=== PATIENT | female | born 1975 | race Caucasian/White ===

== ENCOUNTER → 2020-02-02 15:28 | Outpatient (CLI) | payer OTHER, SELFPAY ==
--- NOTE | ~2020-02-02 | MM_ITS ---
EXAMINATION: MM screening [facility] BI w cha HISTORY: Screening mammogram TECHNIQUE: Craniocaudal and mediolateral oblique 3-D tomosynthesis images were obtained and synthetic 2-D images were generated. CAD analysis was submitted and interpreted. COMPARISON: 11/24/2018, 10/08/2017, 12/11/2015 BREAST PARENCHYMAL COMPOSITION: The breasts are extremely dense, which lowers the sensitivity of mamm ography. FINDINGS: There is no evidence of suspicious mass, calcification, or architectural distortion to sugg est malignancy in either breast. There has been no suspicious interval change. IMPRESSION: 1. No mammographic evidence of malignancy. 2. Recommend routine screening mammography in one year. BI-RADS Category 1: Negative Reviewed, dictated and finalized at location A.
== END ==
PROVIDERS: Visit Provider Nurse Practitioner
DX: Z12.31 Encounter for screening mammogram for malignant neoplasm of breast (principal)
CPT/HCPCS: 77063; 77067

== ENCOUNTER → 2021-02-18 07:17 | Outpatient (CLI) | payer OTHER, SELFPAY ==
--- NOTE | ~2021-02-18 | MM_ITS ---
EXAMINATION: MM screening ben BI w cha HISTORY: Screening mammogram TECHNIQUE: Craniocaudal and mediolateral oblique 3-D tomosynthesis images were obtained and synthetic 2-D images were generated. CAD analysis was submitted and interpreted. COMPARISON: 02/02/2020, 11/24/2018, 10/08/2017 bilateral digital screening mammogram examinations BREAST PARENCHYMAL COMPOSITION: The breasts are extremely dense, which lowers the sensitivity of mamm ography. FINDINGS: There is no evidence of suspicious mass, calcification, or architectural distortion to sugg est malignancy in either breast. There has been no suspicious interval change. IMPRESSION: 1. No mammographic evidence of malignancy. 2. Recommend routine screening mammography in one year. BI-RADS Category 1: Negative Reviewed, dictated and finalized at location A.
== END ==
PROVIDERS: Visit Provider Nurse Practitioner
DX: Z12.31 Encounter for screening mammogram for malignant neoplasm of breast (principal)
CPT/HCPCS: 77063; 77067

== ENCOUNTER → 2022-02-20 15:11 | Outpatient (CLI) | payer OTHER, SELFPAY ==
--- NOTE | ~2022-02-20 | MM_ITS ---
EXAMINATION: MM screening ben BI w cha HISTORY: Screening mammogram TECHNIQUE: Craniocaudal and mediolateral oblique 3-D tomosynthesis images were obtained and synthetic 2-D images were generated. CAD analysis was submitted and interpreted. COMPARISON: 02/18/2021, 02/02/2020, 11/24/2018 bilateral screening mammogram examinations BREAST PARENCHYMAL COMPOSITION: The breasts are extremely dense, which lowers the sensitivity of mamm ography. FINDINGS: There is no evidence of suspicious mass, calcification, or architectural distortion to sugg est malignancy in either breast. There has been no suspicious interval change. IMPRESSION: 1. No mammographic evidence of malignancy. 2. Recommend routine screening mammography in one year. BI-RADS Category 1: Negative Reviewed, dictated and finalized at location A.
== END ==
PROVIDERS: PCP Internal Medicine; Visit Provider Nurse Practitioner
DX: Z12.31 Encounter for screening mammogram for malignant neoplasm of breast (principal)
CPT/HCPCS: 77063; 77067

== ENCOUNTER → 2023-04-09 13:21 | Outpatient (CLI) | payer BC, SELFPAY ==
--- NOTE | ~2023-04-09 | MM_ITS ---
EXAMINATION: MM screening ben BI w cha HISTORY: Screening mammogram TECHNIQUE: Craniocaudal and mediolateral oblique 3-D tomosynthesis images were obtained and synthetic 2-D images were generated. CAD analysis was submitted and interpreted. COMPARISON: 02/20/2022, 02/18/2021, 02/02/2020 bilateral screening mammogram examinations BREAST PARENCHYMAL COMPOSITION: The breasts are extremely dense, which lowers the sensitivity of mamm ography. FINDINGS: There is no evidence of suspicious mass, calcification, or architectural distortion to sugg est malignancy in either breast. There has been no suspicious interval change. IMPRESSION: 1. No mammographic evidence of malignancy. 2. Recommend routine screening mammography in one year. BI-RADS Category 1: Negative Reviewed, dictated and finalized at location A.
== END ==
PROVIDERS: PCP Obstetrics & Gynecology Gynecology; Visit Provider Obstetrics & Gynecology Gynecology
DX: Z12.31 Encounter for screening mammogram for malignant neoplasm of breast (principal)
CPT/HCPCS: 77063; 77067

== ENCOUNTER 2023-04-19 01:10 | Day surgery (SDC) | payer BC, SELFPAY ==
[2023-04-08 15:55] VITALS: BMI 19.3
--- NOTE | 2023-04-16 10:00 | SUR.PREOP ---
MESSAGE LEFT ON PT'S VOICEMAIL REGARDING HER UPCOMING APPOINTMENT
[2023-04-19 08:51] VITALS: BP 113/73; PULSE 65; RESP 16; TEMP 36.4; O2SAT 100
[2023-04-19] MEDS: LACTATED RINGERS 1,000 ML 150 ML IV CONT (09:06)
--- NOTE | 2023-04-19 09:26 | P.HP_ITS ---
History of Present Illness History of Present Illness Consent: Risks, benefits, and alternatives have been discussed and questions answered. Patient agrees to proceed with procedure. Chief complaint: neoplasm screening Narrative: Yumiko Aguilar is a 47 year old female Presents for screening colonoscopy. Patient's current weight appetite and bowel movements are normal. Patient denies abdominal pain. Patient has had no bleeding. Family history noncontributory. Review of Systems Review of Systems: Review of systems noncontributory. [facility] Family History Family History (Updated 05/30/18 @ 11:54 by DOCTOR UNKNOWN) Father Family history of coronary artery disease Social History Social History Smoking status: Never smoker Alcohol intake: current Alcohol use details: occasional Substance use: never Substance use type: does not use Living arrangements: with family Spiritual care concerns: No Meds Home Medications and Allergies Home Medications Medication Instructions Recorded Confirmed Type spironolactone 50 mg tablet 50 mg PO DAILY 04/08/23 04/19/23 History Allergies Allergy/AdvReac Type Severity Reaction Status Date / Time No Known Allergies Allergy Unknown Verified 04/19/23 08:48 Vital Signs Vital Signs - 24 hr 04/19/23 08:51 Temperature 97.6 F Pulse Rate 65 Respiratory Rate 16 Blood Pressure 113/73 Pulse Oximetry 100 Oxygen Delivery Room Air Exam Narrative: Physical exam reveals patient to be alert. Vital signs stable. HEENT exam is unremarkable. Patient is anicteric. Lungs are clear to auscultation and percussion. Heart is without murmur or extra sounds. Abdominal exam bowel sounds are present soft nontender with no organomegaly. Digital external rectal exam normal. Assessment and Plan Assessment and plan (1) Encounter for screening colonoscopy: Code(s): Z12.11 - Encounter for screening for malignant neoplasm of colon Status: Acute Assessment and Plan: Patient presents today for screening colonoscopy. She appears to be at average risk for colon polyps. Further recommendations may be given after endoscopy
--- NOTE | 2023-04-19 09:49 | WPDANESEPPF ---
Anes - Initial Pre Proc Eval Procedure: Operation Date: 04/19/23 10:00 Proposed Procedures p Screening Colonoscopy - Bright Hardy MD Date/Time: 04/19/23 09:49 Surgeon: Bright Hardy MD Pre Op Diagnosis: neoplasm screening Patient Data Age: 47 Gender: F Height: 1.57 m Weight: 46.9 kg Last Vital Signs Temp 97.6 F 04/19/23 08:51 Pulse 65 04/19/23 08:51 Resp 16 04/19/23 08:51 BP 113/73 04/19/23 08:51 Pulse Ox 100 04/19/23 08:51 O2 Del Method Room Air 04/19/23 08:51 Allergies Allergy/AdvReac Type Severity Reaction Status Date / Time No Known Allergies Allergy Unknown Verified 04/19/23 08:48 Home Medications Medication Instructions Recorded Confirmed Type spironolactone 50 mg tablet 50 mg PO DAILY 04/08/23 04/19/23 History Patient hx anesthesia problems: none Family hx anesthesia problems: none Results Review: All pre-operative results and documents have been reviewed as part of the pre-operative evaluation. [facility] Family History Family History (Updated 05/30/18 @ 11:54 by DOCTOR UNKNOWN) Father Family history of coronary artery disease Social History Social History Smoking status: Never smoker Alcohol intake: current Alcohol use details: occasional Substance use: never Substance use type: does not use Living arrangements: with family Spiritual care concerns: No Anes - Eval Final PreProcedure Day of Procedure 04/19/23 09:49 Patient weight: normal Heart: regular rate and rhythm Lungs: clear to auscultation Airway: Mallampati scale class II Neurological: alert and oriented Last oral intake: >/= 8 hours ASA classification: I Emergent: no Anesthetic plan: proceed Anesthesia type and monitoring: general GIVS and standard monitoring Results Review: All pre-operative results and documents have been reviewed as part of the pre-operative evaluation. Informed Consent: The patient's anesthetic plan and its attendant risks and benefits were discussed with the patient/family/POA. Questions were solicited and answers provided to the satisfaction of the patient/family/POA.
[2023-04-19 10:21] VITALS: BP 104/67; PULSE 63; RESP 22; O2SAT 100
[2023-04-19 10:31] VITALS: BP 115/84; PULSE 67; RESP 16; O2SAT 98
[2023-04-19 10:41] VITALS: BP 119/81; PULSE 56; RESP 17; O2SAT 100
== END 2023-04-19 10:49 | disposition home or self-care (01) ==
PROVIDERS: PCP Internal Medicine; Visit Provider Internal Medicine Gastroenterology
PROC: 0DJD8ZZ Inspection of Lower Intestinal Tract, Via Natural or Artificial Opening Endoscopic (ICD-10-PCS; CPT 45378; principal; 2023-04-19 10:00)
DX: Z12.11 Encounter for screening for malignant neoplasm of colon (principal); K64.8 Other hemorrhoids; Z82.49 Family history of ischemic heart disease and other diseases of the circulatory system
CPT/HCPCS: 45378; J2704; J7120

== ENCOUNTER 2023-07-31 19:36 | Emergency (ER) | payer BC, SELFPAY ==
[2023-07-31 19:43] VITALS: BP 104/68; PULSE 70; RESP 16; TEMP 36.8; O2SAT 100
--- NOTE | 2023-07-31 20:06 | ED.URI ---
HPI - URI/Sore Throat General Chief Complaint: Upper Respiratory Infection Stated Complaint: Headache;Congestion Time Seen by Provider: 07/31/23 19:57 Source: patient and RN notes reviewed Mode of arrival: ambulatory Limitations: no limitations History of Present Illness HPI Narrative: Patient presents today complaining of productive cough, fatigue, body aches, headache. Symptoms began around noon today after patient went to the gym and to an event earlier today feeling well. She states, I just don't feel well. Maybe I also have a UTI. Denies any concrete urinary symptoms. Denies sore throat, fever, shortness of breath. She has tried ibuprofen and Excedrin today for her headache without relief. Home COVID test was negative prior to arrival. Related Data Home Medications Medication Instructions Recorded Confirmed spironolactone 50 mg tablet 50 mg PO DAILY 04/08/23 07/31/23 Allergies Allergy/AdvReac Type Severity Reaction Status Date / Time No Known Allergies Allergy Unknown Verified 07/31/23 19:47 Review of Systems Review of Systems: CONSTITUTIONAL: Denies fever, chills, or sweats.+ body aches, fatigue EYES: Denies visual changes, redness, or discharge. ENT: Denies rhinorrhea, congestion, sore throat, or otalgia. CARDIOVASCULAR: Denies chest pain, palpitations, or edema. RESPIRATORY: Denies dyspnea.+ cough GASTROINTESTINAL: Denies abdominal pain, nausea, vomiting, or diarrhea. GENITOURINARY: Denies dysuria or hematuria. SKIN: Denies rash, itching, or wounds. MUSCULOSKELETAL: Denies back pain, joint pain, or myalgia. NEUROLOGIC: Denies numbness, tingling, or weakness.+ headache PSYCH: Denies depression or anxiety. [facility] Family History Family History Father Family history of coronary artery disease Social History Social History Smoking status: Never smoker Alcohol intake: current Alcohol use details: occasional Substance use: never Substance use type: does not use Lack of Transportation: No Lack of Food: Never True Current Housing: I Have Housing Concerned About Future Housing: No Difficulty Paying Gas/Electric Bills: No Difficulty Paying for Meds: No Currently Unemployed: No Education: Master's Degree or Higher Difficulty w/ Childcare or Family Care: No Living arrangements: with family Spiritual care concerns: No Comments At time of signature, I have reviewed and agree with nursing past medical, surgical, social and family history unless otherwise noted. Please see nursing chart for further information. There is no relevant family history pertinent to the presenting complaint Exam Narrative: GENERAL: Well-appearing, well-nourished, and in no acute distress. HEAD: Normocephalic, atraumatic. EYES: EOMI. No redness or drainage. Conjunctivae normal. ENT: Mucous membranes pink and moist. Nares clear. No rhinorrhea. TMs normal bilaterally. Throat normal. Uvula midline. NECK: Normal AROM. Supple. No lymphadenopathy. CHEST: No respiratory distress. Clear to auscultation. HEART: Regular rate and rhythm. No murmur appreciated. EXTREMITIES: Normal range of motion. No edema. SKIN: Warm, dry, no rash. Capillary refill normal. Normal skin turgor. NEURO: No focal deficits. Alert and oriented x3. Gait steady. PSYCH: Normal affect. No signs of depression or anxiety. Course Course Level of Care: Express Care Visit Vital Signs Vital signs: Vital Signs Temperature 98.2 F 07/31/23 19:43 Pulse Rate 70 07/31/23 19:43 Respiratory Rate 16 07/31/23 19:43 Blood Pressure 104/68 07/31/23 19:43 Pulse Oximetry 100 07/31/23 19:43 Temperature 98.2 F 07/31/23 19:43 Pulse Rate 70 07/31/23 19:43 Respiratory Rate 16 07/31/23 19:43 Blood Pressure 104/68 07/31/23 19:43 Pulse Oximetry 100 07/31/23 19:43 Review
== END 2023-07-31 20:09 | disposition home or self-care (01) ==
PROVIDERS: Emergency Provider Nurse Practitioner; PCP Internal Medicine
DX: B34.9 Viral infection, unspecified (principal)
CPT/HCPCS: 81003; 87804; 99213; G0463

== ENCOUNTER 2023-10-26 08:57 | Emergency (ER) | payer BC, SELFPAY ==
--- NOTE | ~2023-10-26 | CT_ITS ---
EXAMINATION: CTA neck DATE: 10/26/2023 09:55 INDICATION: Right neck injury. TECHNIQUE: Computed tomographic angiography (CTA) of the neck was performed with 100 mL Omnipaque-350 intravenous contrast. Automated exposure control and iterative reconstruction technique were employe d. The dose-length product was 397.40 mGy-cm. Maximum intensity projection 3D-reconstructions were cr eated by the technologist on a separate workstation. COMPARISON: None. FINDINGS: There is mild scarring at the lung apices. There are no pathologically enlarged lymph nodes . There is no significant stenosis of the vertebral arteries. There is minimal plaque in proximal lef t internal carotid artery. There is 0% stenosis of the proximal right internal carotid artery relativ e to normal distal artery lumen diameter (NASCET criteria). There is 0% stenosis of the proximal left internal carotid artery relative to normal distal artery lumen diameter. There is mild cervical spon dylosis. IMPRESSION: 1. 0% stenosis of the proximal internal carotid arteries relative to normal distal artery lumen diame ters (NASCET criteria). Reviewed, dictated and finalized at location A. IMPRESSION: 1. 0% stenosis of the proximal internal carotid arteries relative to normal dis boaz artery lumen diameters (NASCET criteria).
--- NOTE | ~2023-10-26 | XR_ITS ---
EXAMINATION: XR elbow RT min 3V DATE: 10/26/2023 10:01 INDICATION: Right elbow injury and pain. TECHNIQUE: 4 views of right elbow were obtained. COMPARISON: Right elbow radiographs 07/06/2018 FINDINGS: Bone alignment is normal. No fracture. Joint spaces are normal. No elbow joint effusion. IMPRESSION: 1. Normal right elbow. Reviewed, dictated and finalized at location A. IMPRESSION: 1. Normal right elbow.
[2023-10-26 09:00] VITALS: BP 125/63; PULSE 58; RESP 16; TEMP 36.4; O2SAT 100
--- NOTE | 2023-10-26 09:21 | ED.GENADULT ---
HPI - General Adult General Chief complaint: Neck Pain/Injury Stated complaint: throat swelling from trauma yest Time Seen by Provider: 10/26/23 09:08 History of Present Illness HPI narrative: 48-year-old female presents to the emergency department for evaluation of soreness to the right side of her neck. Patient was using a with the machine that had a malfunction causing the bar to strike the right side of her neck. Patient does report some pain in the right elbow but also report some pain with swallowing. Related Data Home Medications Medication Instructions Recorded Confirmed spironolactone 50 mg tablet 50 mg PO DAILY 04/08/23 07/31/23 Allergies Allergy/AdvReac Type Severity Reaction Status Date / Time No Known Allergies Allergy Unknown Verified 07/31/23 19:47 Review of Systems Review of Systems: All systems reviewed & are unremarkable except as noted in HPI and below PMFSH Family History Family History Father Family history of coronary artery disease Social History Social History Smoking status: Never smoker Alcohol intake: current Alcohol use details: occasional Substance use: never Substance use type: does not use Lack of Transportation: No Lack of Food: Never True Current Housing: I Have Housing Concerned About Future Housing: No Difficulty Paying Gas/Electric Bills: No Difficulty Paying for Meds: No Currently Unemployed: No Education: Master's Degree or Higher Difficulty w/ Childcare or Family Care: No Living arrangements: with family Spiritual care concerns: No Exam Narrative: APPEARANCE: Well appearing, no pain, no distress, well-nourished. HEAD: normocephalic, atraumatic. EYES: PERRLA/EOMI, conjunctivae clear. NOSE: Normal no drainage EARS:TMS clear with good light reflex. THROAT: Pharynx clear, no exudate. NECK: Supple. No adenopathy, no masses. No posterior tenderness to palpation no anterior ecchymosis or edema. RESPIRATORY: Airway patent, respirations nonlabored. Clear to auscultation bilaterally, no rales, rhonchi, wheezing. CARDIOVASCULAR: Regular rate and rhythm without murmurs rubs or gallops. ABDOMINAL: Soft, nontender, nondistended, normal bowel sounds MUSCULOSKELETAL: Moves all extremities. Strength/ROM intact, No edema, No calf tenderness. NEURO: Alert. Cranial nerves II through XII intact. Grossly intact SKIN: Warm, dry. Normal Color Course Vital Signs Vital signs: Vital Signs Temperature 97.6 F 10/26/23 09:00 Pulse Rate 58 L 10/26/23 09:00 Respiratory Rate 16 10/26/23 09:00 Blood Pressure 125/63 10/26/23 09:00 Pulse Oximetry 100 10/26/23 09:00 Oxygen Delivery Room Air 10/26/23 09:00 Temperature 97.6 F 10/26/23 09:00 Pulse Rate 86 10/26/23 10:49 Respiratory Rate 16 10/26/23 10:49 Blood Pressure 113/72 10/26/23 10:49 Pulse Oximetry 97 10/26/23 10:49 Oxygen Delivery Room Air 10/26/23 09:00 Medical Decision Making MDM Narrative Medical decision making narrative: 48-year-old female presented to the emergency department for evaluation of right elbow pain and right-sided neck pain. Patient is afebrile with stable hemoglobin and white blood cell count patient's INR is 0.9 with no significant acute abnormalities on her CMP. X-ray of the elbow was negative for acute fracture dislocation, CTA of the neck showed no vascular injury. Patient and family were updated on the results of her imaging. Differential Diagnosis Differential Diagnosis: Carotid injury, esophageal injury, tracheal injury, elbow strain Vital Signs Vital Signs: Vital Signs Temperature 97.6 F 10/26/23 09:00 Pulse Rate 58 L 10/26/23 09:00 Respiratory Rate 16 10/26/23 09:00 Blood Pressure 125/63 10/26/23 09:00 Pulse Oximetry 100 10/26/23 09:00 Oxygen Delivery Room Air 10/26/23 09:00
[2023-10-26 09:47] LABS: Estimated CRCL calculation 56 ml/min; Estimated Glomerular Filt Rate > 60
[2023-10-26 09:49] LABS: Basophils Percent Auto 0.8 % (0.2-1.2); Eosinophils Absolute Auto 0.2 K/mm3 (0-0.3); Eosinophils Percent Auto 5.8 % (0-4.4); Hematocrit 37.4 % (37.0-47.0); Hemoglobin 12.7 g/dL (12.0-15.0); Immature Granulocyte Absolute 0.01 K/mm3 (0.00-0.031); Immature Granulocyte Percent A 0.3 % (0-0.5); Lymphocytes Absolute Auto 1.41 K/mm3 (0.9-3.2); Lymphocytes Percent Auto 39.3 % (18.3-44.2); Mean Corpuscular Hemoglobin 33.9 pg (26-34); Mean Corpuscular Volume 99.7 fl (80-100); Mean Platelet Volume 9.9 fl (7.4-10.4); Monocytes Absolute Auto 0.3 K/mm3 (0.1-0.6); Monocytes Percent Auto 8.4 % (2.6-8.5); Neutrophils Absolute Auto 1.6 K/mm3 (1.3-6.7); Neutrophils Percent Auto 45.4 % (45.5-73.1); Platelet Count Result 211 k/mm3 (150-375); Red Blood Count 3.75 M/mm3 (4.2-5.4); Red Cell Distribution Width 12.2 % (11.5-14.5); White Blood Count 3.6 K/mm3 (4.5-10.0)
[2023-10-26 09:53] LABS: Alanine Aminotransferase 19 U/L (6-35); Albumin Level 4.7 g/dL (3.5-5.1); Alkaline Phosphatase 37 U/L (38-126); Anion Gap 7 mmol/L (4-12); Aspartate Amino Transferase 26 U/L (14-36); Bilirubin,Total 0.5 mg/dL (0.2-1.3); Blood Urea Nitrogen 10 mg/dL (7-17); Calcium 9.7 mg/dL (8.4-10.2); Carbon Dioxide 24 mmol/L (22-30); Chloride 107 mmol/L (98-107); Estimated CRCL calculation 63 ml/min; Estimated Glomerular Filt Rate > 60; Glucose 86 mg/dL (65-110); Potassium 4.4 mmol/L (3.4-5.0); Sodium 138 mmol/L (137-145)
[2023-10-26 09:59] LABS: INR 0.9; Prothrombin Time 12.9 Seconds (11.1-14.7)
[2023-10-26 10:00] LABS: Partial Thromboplastin Time 22.9 Seconds (22.3-36.8)
[2023-10-26 10:49] VITALS: BP 113/72; PULSE 86; RESP 16; O2SAT 97
== END 2023-10-26 10:50 | disposition home or self-care (01) ==
PROVIDERS: Emergency Provider Emergency Medicine; PCP Internal Medicine
DX: S10.93XA Contusion of unspecified part of neck, initial encounter (principal); S53.401A Unspecified sprain of right elbow, initial encounter; W22.8XXA Striking against or struck by other objects, initial encounter
CPT/HCPCS: 36415; 70498; 73080; 80053; 81025; 85025; 85610; 85730; 99284; Q9967

== ENCOUNTER 2024-04-13 09:49 | Outpatient (CLI) | payer BC, SELFPAY ==
--- NOTE | ~2024-04-13 | MM_ITS ---
EXAMINATION: MM screening ben BI w cha HISTORY: Screening mammogram TECHNIQUE: Craniocaudal and mediolateral oblique 3-D tomosynthesis images were obtained and synthetic 2-D images were generated. CAD analysis was submitted and interpreted. COMPARISON: No prior mammogram is available for comparison at this institution. BREAST PARENCHYMAL COMPOSITION:Dense: The breasts are extremely dense, which lowers the sensitivity o f mammography. FINDINGS: No suspicious mass, calcification, or architectural distortion are identified in either anish ast to suggest malignancy. There has been no suspicious interval change. IMPRESSION: No mammographic evidence of malignancy. Recommend routine screening mammography in one year. BI-RADS Category 1: Negative Reviewed, dictated and finalized at location M.
== END 2024-04-13 09:50 | disposition home or self-care (01) ==
LOC: MICIMG 09:50
PROVIDERS: PCP Nurse Practitioner; Visit Provider Nurse Practitioner
DX: Z12.31 Encounter for screening mammogram for malignant neoplasm of breast (principal)
CPT/HCPCS: 77063; 77067

== ENCOUNTER 2025-06-06 08:25 | Outpatient (CLI) | payer BC, SELFPAY ==
--- OUTSIDE RECORDS SUMMARY | 2025-06-06 08:28 | XMS_ITS | Encounter Summary ---
Author Organization [facility] Address [address] [place] [address] Care Team Providers Care Housekeeping Aid Name Role Phone Provider, Abstract Primary Care Provider Unavail able Encounter Details Date Type Department Care Team (Late st Contact Info) Description 07/22/2007 Outpatient Historical [facility] Internal Medicine - [facility] [id number] [facility] [address] [place] [address] Mabel Diez MD Social History Tobacco Use Types Packs/Day Years Used Date Smoking Tobacco: Never Assessed Comments Unknown Sex and Gender Information Value Date Recorded Sex Assigned at Not on file 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
--- OUTSIDE RECORDS SUMMARY | 2025-06-06 08:28 | XMS_ITS | Encounter Summary ---
Author Organization [facility] Address [address] [place] [address] Care Team Providers Care Business Process Representative Name Role Phone Provider, Abstract Primary Care Provider Unavail able Encounter Details Date Type Department Care Team (Latest Contact Info) Description 06/21/[address] 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
--- OUTSIDE RECORDS SUMMARY | 2025-06-06 08:28 | XMS_ITS | Clinical Summary ---
Author Organization [facility] [facility] Address [address] [place] [address] Care Team Providers Care Laborer [employer] Name Role Phone Unavailable Primary Care Provider Unavailabl e Source Comments [facility],non-owned Affiliates and Associated Physician Practices is amultiple site organization consisting of ambulatory clinics and hospital sitesin [place], [place], [place] and [place]. This disclosure is being madepursuant to the Care Everywhere program and may not contain all information available regarding this patient. Last updated 18.[facility] Allergies No known active allergies Medications * Be aware that medications may not be up to date on this document. Alwaysverify current medications with the patient. 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 Sexual Orientation Straight 05/20/2021 5: 35 AM INSURANCE DEFENSE ATTORNEY Last Filed Vital Signs Vital Sign Reading Time Taken Comments Blood Pressure 108/70 06/15/2019 11:47 AM INSURANCE DEFENSE ATTORNEY Pulse 77 06/15/2019 11:47 AM INSURANCE DEFENSE ATTORNEY Temperature 37 C (98.6 F) 06/15/2019 11:47 AM INSURANCE DEFENSE ATTORNEY Respiratory Rate 16 06/15/2019 11:47 AM INSURANCE DEFENSE ATTORNEY Oxygen Saturation 99% 06/15/2019 11:47 AM INSURANCE DEFENSE ATTORNEY Inhaled Oxygen Concentration - - Weight 49.9 kg (110 lb) 06/15/2019 11:47 AM INSURANCE DEFENSE ATTORNEY Height 157.5 cm (5' 2) 06/15/2019 11:47 AM INSURANCE DEFENSE ATTORNEY Body Mass Index 20.12 06/15/2019 11:47 AM INSURANCE DEFENSE ATTORNEY Plan of Treatment Health Maintenance Due Date Last Done Comments COLOGUARD (AGES 45-75) - COL ON CA SCREENING 1977 COLON MONITORING 1977 COLONOSCOPY - COLON CA SCREENING 1977 CT COLONOGRAPHY - COLON CA SCREENING 1977 Colorectal Cancer Screening 1977 FIT - COLON CA SCREENING 1977 FLEX SIG - COLON CA SCREENING 1977 LIPID TESTING 1977 MAMMOGRAM 1977 HIV SCREENING 1992 HEPATITIS C SCREENING 08/04/1995 DTAP/TDAP/TD VACCINES (1 - Tdap) 1996 HEPATITIS B VACCINE (1 of 3 - 19+ 3-dose series) 1996 DEPRESSION SCREENING 06/14/2024 COVID-19 VACCINE (3 - 2024-2 6 season) 2025 09/25/2020, 09/02/2020 INFLUENZA VACCINE (#1) 2025 , 03/16/2020 ZOSTER VACCINE (1 of 2) 2027 HIB VACCINE Aged Out No longer eligi ble based on patient's age to complete this topic HPV VACCINE Aged Out No longer eligi ble based on patient's age to complete this topic MENINGOCOCCAL (Group B) VACCINE SHARED DECISION-MAKING Aged Out No longer eligible based on patient's age to complete this topic MENINGOCOCCAL GROUPS A/C/Y/W VACCINE Aged Out No longer eligible b ased on patient's age to complete this topic PNEUMOCOCCAL VACCINE Aged Out No long er eligible based on patient's age to complete this topic Insurance [facility] Address: [address] [place] [address] [facility]
--- OUTSIDE RECORDS SUMMARY | 2025-06-06 08:28 | XMS_ITS | Clinical Summary ---
Author Organization [employer] [facility] Address [address] [facility] [place] [address] Phone Care Team Providers Care Sde Name Role Phone Provider, Abstract Primary Care Provider Unavail able Allergies Active Allergy Reactions Criticality Noted Date Comments No Known Allergies 12/30/2005 Medications FIORICET 50-325-40 mg Oral Tab 1-2 tablet at headache onset. May repeat every 4 hours. Maximumof 6 tablets in 24 hours. 30.00 0 7 Active MICROGESTIN 1.5/30 (21) 1.5-30 mg-mcg Oral Tab Take 1 Tab by mouth daily. Active spironolactone (ALDACTONE) 50 mg Oral Tab Take 50 mg by mouth 2 times daily. Active naproxen sodium (ALEVE) 220 mg Oral TabIndications: Chondromalacia Take 2 Tabs by mouth 2 times daily. 0 0 8 Active Active Problems Problem Noted Date Diagnosed Date Acne NEC 12/19/2007 Overview (12/19/2007): Controlled with spirnolactone Resolved Problems Problem Noted Date Diagnosed Date Resolved Date Acute maxillary sinusitis 03/14/2007 Headache(784.0) 03/14/2007 12/19/2007 Abdominal pain, generalized 06/18/2006 12/19/2007 Abdominal pain, unspecified site 06/18/2006 12/19/2007 Acute upper respiratory infe ctions of unspecified site 06/18/2006 12/19/2007 Routine general medical exam ination at a health care facility 12/30/2005 12/19/2007 Screening for lipoid disorders 12/30/2005 12/19/2007 Pain in joint, ankle and foot 12/30/2005 12/19/2007 Social History Tobacco Use Types Packs/Day Years Used Date Smoking Tobacco: Never Alcohol Use Standard Drinks/Week Comments Yes 0.8 (1 standard drink = 0.6 oz p ure alcohol) Comments No Sex and Gender Information Value Date Recorded Sex Assigned at Not on file Legal Sex Female 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 Gender Identity Not on file Sexual Orientation Not on file Last Filed Vital Signs Vital Sign Reading Time Taken Comments Blood Pressure 82/60 12/19/2007 2:35 PM CDT Pulse 58 12/19/2007 2:35 PM CDT Temperature 36.7 C (98.1 F) 12/19/2007 2:35 PM CDT Respiratory Rate - - Oxygen Saturation - - Inhaled Oxygen Concentration - - Weight 48.1 kg (106 lb) 12/19/2007 2:35 PM CDT Height - - Body Mass Index - - Plan of Treatment Health Maintenance Due Date Last Done Comments DTAP/TDAP/TD VACCINES (1 - Tdap) 1996 HEPATITIS B VACCINES (1 of 3 - 19+ 3-dose series) 07/16 HPV/Cotest (21-29) 1998 CERVICAL CANCER SCREENING 2007 HPV/Cotest (30-65) 2007 PAP SMEAR 2007 BREAST CANCER SCREENING 2017 COLORECTAL SCREENING 2022 Colorectal Cancer Screening 2022 FIT-DNA Q 3 years 2022 FIT/FOBT Q 1 year 2022 Flex Sig/CT Colonography Q 5 years 2022 INFLUENZA VACCINE (#1) 2025 Insurance [facility] OPT[employer] PPO [id number] Care Teams Sde Relationship Specialty Start Date End Date Provider, Abstract NO ADDRESS ON FILE PCP - General 02/28/21
--- OUTSIDE RECORDS SUMMARY | 2025-06-06 08:28 | XMS_ITS | Encounter Summary ---
Author Organization [facility] Address [address] [place] [address] Care Team Providers Care Scarf And Anneal Operator Name Role Phone Provider, Abstract Primary Care Provider Unavail able Encounter Details Date Type Department Care Team (Late st Contact Info) Description 03/14/2007 Orders Only [facility] Internal Medicine - [facility] [address] [address] [facility] [address] [place] [address] Wanda Alcantara, ANP [address] [place] [address] Social History Tobacco Use Types Packs/Day Years Used Date Smoking Tobacco: Never Assessed Comments Unknown Sex and Gender Information Value Date Recorded Sex Assigned at Not on file Legal Sex Female 3:57 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 MEDICATIONS: Medication list current. CHIEF COMPLAINT Patient complains of sinus congestion, headache, sore throat. HISTORY: HISTORY OF PRESENT ILLNESS: UPPER RESPIRATORY: The upper respiratory symptoms began approximately 2 months ago. Symptoms include headache, symptoms include sinus congestion. feels she has had sinus problems since moved to [place] from [place] 6 years ago. Has tried claritin, which caused diarrhea. Nasal sprays dry her out. Now using saline nasal spray bid. Gets headaches twice weekly that increase congestion. Sporadic locations migrating to R amish, R occiput, L occiput. Relieved with quiet. NO light sensitivity. No aura. Relieved with excedrin migraine 2 times weekly. Mother has same type headaches relieved with same. Does note headaches worse during menses. ROS: ENT: NASAL CONGESTION PRESENT, CLOUDY NASAL DISCHARGE PRESENT, HAS NOSE BLEEDS. one spontaneous nose bleed last week. RESPIRATORY: No cough, no shortness of breath. NEUROLOGIC: No episodes of dizziness, no fainting, no complaints of weakness. FAMILY HISTORY: FATHER: The father is living. No major illnesses are known. MOTHER: Migraine headaches SOCIAL HISTORY: TOBACCO USE: Has no significant smoking history. ALCOHOL: Does not give any significant history of alcohol usage. CAFFEINE: Does not use caffeinated beverages. in meds twice weekly PHYSICAL EXAMINATION: CONSTITUTIONAL: GENERAL APPEARANCE: Healthy appearing patient in no distress. EARS, NOSE, MOUTH AND THROAT: EARS: Tympanic membranes shiny without retraction. Canals unremarkable. NOSE (AND SINUS): TURBINATES SWOLLEN BILATERALLY, TURBINATES PALE BILATERALLY, no ulceration of thenasal airways, no nasal discharge noted. ORAL: Normal oropharynx. NECK/THYROID: No enlargement, tenderness, or mass in the thyroid noted. RESPIRATORY: Clear to auscultation and percussion. Normal respiratory effort. CARDIOVASCULAR: CARDIAC: Regular rhythm. No murmurs, rubs, or gallops. NEUROLOGIC: CRANIAL NERVES: physician coder II-XII grossly intact. ASSESSMENT/PLAN: 461.0-ACUTE SINUSITIS ASSESSMENT: will treat for infection , may be allergies. MEDICATIONS: AMOXICILLIN ORAL TABLET 500 MG, 1 Three Times A Day, 30 Dispensed, status: NEW PRESCRIPTION, 03/14/2007. 784.0-HEADACHE ASSESSMENT: consider sinus, migraine or tension. MEDICATIONS: FIORICET ORAL TABLET 50-325-40 MG, 1-2 tablet at headache onset. May repeat every 4 hours. Maximumof 6 tablets in 24 hours., 30 Dispensed, status: NEW PRESCRIPTION, 03/14/2007. continue to track headaches. LAB ORDERS: Order number: [id number] Test Ordered: CT HEAD WITH & W/O CONTRAST Order number: [id number] Test Ordered: CT SINUSES LIMITED If all negative, and still not improved, consider pierre or zyrtec in pediatric dose due to med intolerances of past. RETURN VISIT : The patient will be contacted to return after we review the labs ordered above. Electronically Signed by: Wanda Alcantara RN, CS, ANP on Wednesday, March 14, 2007 Electronically Signed by: Luz Elena Cárdenas MD on Thursday, March 15, 2007 documented in this encounter Plan of Treatment Not on file documented as of this encounter Visit Diagnoses Not on filedocumented in this encounter Care Teams Scarf And Anneal Operator Relationship Specialty Start Date End Date Provider, Abstract NO ADDRESS ON FILE PCP - General 02/28/21 documented as of this encounter
--- OUTSIDE RECORDS SUMMARY | 2025-06-06 08:28 | XMS_ITS | Encounter Summary ---
Author Organization [facility] Address [address] [place] [address] Care Team Providers Care Electric Motor Repairing Supervisor Name Role Phone Provider, Abstract Primary Care Provider Unavail able Encounter Details Date Type Department Care Team (Late st Contact Info) Description 12/30/2005 Outpatient Historical [facility] Internal Medicine - 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 Gender Identity Not on file Sexual Orientation Not on file documented as of this encounter Last Filed Vital Signs Vital Sign Reading Time Taken Comments Blood Pressure 104/62 12/30/2005 2:15 PM CDT Pulse 68 12/30/2005 2:15 PM CDT Temperature - - Respiratory Rate - - Oxygen Saturation - - Inhaled Oxygen Concentration - - Weight 47.6 kg (105 lb) 12/30/2005 2:15 PM CDT Height - - Body Mass Index - - documented in this encounter Plan of Treatment Not on file documented as of this encounter Visit Diagnoses Not on filedocumented in this encounter Care Teams Electric Motor Repairing Supervisor Relationship Specialty Start Date End Date Provider, Abstract NO ADDRESS ON FILE PCP - General 02/28/21 documented as of this encounter
--- OUTSIDE RECORDS SUMMARY | 2025-06-06 08:28 | XMS_ITS | Encounter Summary ---
Author Organization [facility] Address [address] [place] [address] Care Team Providers Care Petroleum Terminal Plant Operator Name Role Phone Provider, Abstract Primary Care Provider Unavail able Encounter Details Date Type Department Care Team (Late st Contact Info) Description 06/18/2006 Outpatient Historical [facility] Internal Medicine - [facility] [address] [address] 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 Gender Identity Not on file Sexual Orientation Not on file documented as of this encounter Last Filed Vital Signs Vital Sign Reading Time Taken Comments Blood Pressure 108/68 06/18/2006 11:45 AM STEEL FLOOR PAN PLACING SUPERVISOR Pulse 76 06/18/2006 11:45 AM STEEL FLOOR PAN PLACING SUPERVISOR Temperature 36.3 C (97.4 F) 06/18/2006 11:45 AM STEEL FLOOR PAN PLACING SUPERVISOR Respiratory Rate - - Oxygen Saturation - - Inhaled Oxygen Concentration - - Weight 46.7 kg (103 lb) 06/18/2006 11:45 AM STEEL FLOOR PAN PLACING SUPERVISOR Height - - Body Mass Index - - documented in this encounter Plan of Treatment Not on file documented as of this encounter Visit Diagnoses Not on filedocumented in this encounter Care Teams Petroleum Terminal Plant Operator Relationship Specialty Start Date End Date Provider, Abstract NO ADDRESS ON FILE PCP - General 02/28/21 documented as of this encounter
--- OUTSIDE RECORDS SUMMARY | 2025-06-06 08:28 | XMS_ITS | Encounter Summary ---
Author Organization [email or web address] Address 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
--- OUTSIDE RECORDS SUMMARY | 2025-06-06 08:28 | XMS_ITS | Encounter Summary ---
Author Organization [facility] Address [address] [place] [address] Care Team Providers Care Lead Quality Control Technician Name Role Phone Provider, Abstract Primary Care Provider Unavail able Encounter Details Date Type Department Care Team (Latest Contact Info) Description 12/31/2005 Outpatient Historical [facility] Internal Medicine - [facility] [address] [address] [facility] [address] [place] [address] Mabel Diez MD Screening for Lipoid Disorders (Primary Dx) Social History Tobacco Use Types Packs/Day Years Used Date Smoking Tobacco: Never Assessed Comments Unknown Sex and Gender Information Value Date Recorded Sex Assigned at Not on file Legal Sex Female 3:57 AM SALESPERSON NECKTIES Gender Identity Not on file Sexual Orientation Not on file documented as of this encounter Plan of Treatment Not on file documented as of this encounter Procedures Procedure Name Priority Date/Time Associated Diagnosis Comments LIPID PANEL Routine 12/31/2005 7:40 AM CDT documented in this encounter Results * (ABNORMAL) LIPID PANEL (12/31/2005 7:40 AM CDT) CHOLESTEROL 182 100 - 199 mg/dL INTERFACE SYSTEM TRIGLYCERIDE 72 10 - 149 mg/dL INTERFACE SYSTEM HDL 66(H) 40 - 59 mg/dL INTERFACE SYSTEM CHOL/HDL RATIO 2.8 2.0 - 5.0 INTER FACE SYSTEM LDL CALCULATED 102(H) <=99 mg/dL INTERFACE SYSTEM LIPID PANEL COMMENT See Below INTERFACE SYSTEM Comment: The adult ATP and pediatric NCEP classifications for lipids are available on the [facility] Intranet at: [email or web address] Select: Lab Policies and Procedures Select: Reference Ranges - Lipids 12/31/2005 7:40 AM CDT us Mabel Diez MD CHEMISTRY ORDERABLES Final Res ult INTERFACE SYSTEM Refer to clinic/hospital department documented in this encounter Visit Diagnoses Diagnosis Screening for lipoid disorders- Primary documented in this encounter Care Teams Lead Quality Control Technician Relationship Specialty Start Date End Date Provider, Abstract NO ADDRESS ON FILE PCP - General 02/28/21 documented as of this encounter
--- OUTSIDE RECORDS SUMMARY | 2025-06-06 08:28 | XMS_ITS | Clinical Summary ---
Author Organization [facility] [address] [place] Address [address] [place] [address] Care Team Providers Care Cigarette Vendor Name Role Phone Corky García DO Primary Care Provider [phone] No, Physician Unavailable Allergies No known active allergies Medications spironolactone (ALDACTONE) 50 mg tablet 06/14/2022 Active norethindrone-e. estradioL-iron (Junel FE 07/03, ,) 1 mg-20 mcg (21)/75 mg (7) per tablet 06/14/2022 Active cholecalciferol (Vitamin D3) 2000 unit capsule 06/14/2022 Active cyanocobalamin (vitamin B-12) 250 mcg tablet Activ e cetirizine 10 mg capsule 06/14/2022 Active erythromycin (ILOTYCIN) ophthalmic ointmentIndicati ons:Hordeolum externum of left upper eyelid Apply to left eye 4 (four) times a day for 7 days 3.5 g 05/13/2025 5 Active Problems No known active problems Encounters Date Type Department Care Team Description 05/13/2025 6:00 PM FISHING LINE WINDING MACHINE OPERATOR Office Visit [facility] at [address] [address] Fatou Saeed NP Hordeolum externum of left upper eyelid (Primary Dx) 04/16/2025 9:10 AM FISHING LINE WINDING MACHINE OPERATOR - 04/16/2025 11:59 PM FISHING LINE WINDING MACHINE OPERATOR Hospital Encounter [id number] [place] [address] Screening mammogram, encounter for Discharge Disposition: Discharge to home or self care from Last 3 Months Surgical History Surgery Date Site/Laterality Comments BREAST BIOPSY Right needle, benign [phone], right Medical History Medical History Date Comments Chondromalacia Family History Medical History Relation Name Comments Breast cancer Paternal Grandmother Relation Name Status Comments Paternal Grandmother Social History Tobacco Use Types Packs/Day Years Used Date Smoking Tobacco: Never Comments No Sex and Gender Information Value Date Recorded Sex Assigned at Not on file Legal Sex Female 12:48 PM FISHING LINE WINDING MACHINE OPERATOR Gender Identity Not on file Sexual Orientation Not on file Obstetrics History Para Term AB IAB SAB Ectopic Multiple Livin g Live Births 1 1 Date Outcome GA Total Labor Labor/2nd/3rd Weight Sex Type Anes PTL Nesha A1 A5 Name Clin Last Filed Vital Signs Vital Sign Reading Time Taken Comments Blood Pressure 109/59 05/13/2025 6:17 PM FISHING LINE WINDING MACHINE OPERATOR Pulse 75 05/13/2025 6:17 PM FISHING LINE WINDING MACHINE OPERATOR Temperature 36.4 C (97.6 F) 05/13/2025 6:17 PM FISHING LINE WINDING MACHINE OPERATOR Respiratory Rate 18 05/13/2025 6:17 PM FISHING LINE WINDING MACHINE OPERATOR Oxygen Saturation 99% 05/13/2025 6:17 PM FISHING LINE WINDING MACHINE OPERATOR Inhaled Oxygen Concentration - - Weight 49.5 kg (109 lb 3.2 oz) 05/13/2025 6:17 P M FISHING LINE WINDING MACHINE OPERATOR Height 157.5 cm (5' 2.01) 05/13/2025 6:17 PM CS T Body Mass Index 19.97 05/13/2025 6:17 PM FISHING LINE WINDING MACHINE OPERATOR Plan of Treatment Health Maintenance Due Date Last Done Comments Cervical Cancer Screening 1977 Colon Cancer Screening-Colonoscopy 1977 Depression Screening 1977 Hepatitis C Screening 1977 DTaP/Tdap/Td Vaccine (1 - Tdap) 1988 Hepatitis B Screening 1995 Regular Well Visit/Exam 18-64 1995 Covid-19 Vaccine ( - season) 2025 03/11/2022, 06/01/2021, 09/25/2020, Additional history exists Influenza Vaccine (#1) 2025 3, 03/11/2022, 03/07/2021, Additional history exists Breast Cancer Screening-Mammogram 04/16/2026 04/16/2025 Pneumococcal vaccine <65 Aged Out No longer eligible based on patient's age to complete this topic Procedures Procedure Name Priority Date/Time Associated Diagnosis Comments SCREENING MAMMOGRAM BILATERAL W TERRELL Schedule Routine, Read Routine (OP Routine) 04/16/2025 9:35 AM FISHING LINE WINDING MACHINE OPERATOR Screening mammogram, encounter for from Last 3 Months Results * Screening Mammogram Bilateral W Terrell (04/16/2025 9:35 AM FISHING LINE WINDING MACHINE OPERATOR) Anatomical Region Laterality Modality Breast Bilateral Mammography Impressions 04/16/2025 3:55 PM FISHING LINE WINDING MACHINE OPERATOR Bilateral No evidence of malignancy in either breast. OVERALL BI-RADS FINAL ASSESSMENT: 1 - Negative RECOMMENDATION: Recommend bilateral annual screening mammography. If supplemental screening is desired for heterogeneously dense breast tissue, consider breast MRI every 1-2 years. If breast MRI cannot be performed, contrast-enhanced mammography is an alternative. Narrative 04/16/2025 3:55 PM FISHING LINE WINDING MACHINE OPERATOR EXAMINATION: Screening Mammogram Bilateral W Terrell: 04/16/2025 COMPARISON: Relevant prior studies available at the time of interpretation were reviewed, including the most recent mammogram on: 04/13/2024. TECHNIQUE: Mammography was performed with 2D and 3D digital breast tomosynthesis (DBT) images. CAD was utilized. BREAST PARENCHYMAL COMPOSITION: The breasts are heterogeneously dense, which may obscure small masses. FINDINGS: Bilateral There is no suspicious mass, calcification, or architectural distortion in either breast. us Self Screening Mammogram IMG MAMMO PROCEDURES Fi nal Result from Last 3 Months Insurance [place] Care Teams Cigarette Vendor Relationship Specialty Start Date End Date Corky García DO PCP - General Internal Medicine 10/14/22 No, Physician 10/14/22
--- OUTSIDE RECORDS SUMMARY | 2025-06-06 08:28 | XMS_ITS | Encounter Summary ---
Author Organization [employer] Address [address] [place] [address] Care Team Providers Care Policy Writer Name Role Phone Provider, Abstract Primary Care Provider Unavail able Encounter Details Date Type Department Care Team (Latest Contact Info) Description 04/05/2007 Outpatient Historical [facility] Mabel Diez MD Headache (Primary Dx) Social History Tobacco Use Types Packs/Day Years Used Date Smoking Tobacco: Never Assessed Comments Unknown Sex and Gender Information Value Date Recorded Sex Assigned at Not on file Legal Sex Female 3:57 AM TRAY SERVER Gender Identity Not on file Sexual Orientation Not on file documented as of this encounter Plan of Treatment Not on file documented as of this encounter Visit Diagnoses Diagnosis Headache(784.0)- Primary Headache documented in this encounter Care Teams Policy Writer Relationship Specialty Start Date End Date Provider, Abstract NO ADDRESS ON FILE PCP - General 02/28/21 documented as of this encounter
--- OUTSIDE RECORDS SUMMARY | 2025-06-06 08:28 | XMS_ITS | Encounter Summary ---
Author Organization [facility] Address [address] [place] [address] Care Team Providers Care Environmental Safety Specialist Name Role Phone Provider, Abstract Primary Care Provider Unavail able Encounter Details Date Type Department Care Team (Late st Contact Info) Description 07/22/2007 Outpatient Historical [facility] Internal Medicine - [facility] [address] [address] [facility] [address] [place] [address] Mabel Diez MD Social History Tobacco Use Types Packs/Day Years Used Date Smoking Tobacco: Never Assessed Comments Unknown Sex and Gender Information Value Date Recorded Sex Assigned at Not on file Legal Sex Female 3:57 AM FELT COVERER Gender Identity Not on file Sexual Orientation Not on file documented as of this encounter Plan of Treatment Not on file documented as of this encounter Visit Diagnoses Not on filedocumented in this encounter Care Teams Environmental Safety Specialist Relationship Specialty Start Date End Date Provider, Abstract NO ADDRESS ON FILE PCP - General 02/28/21 documented as of this encounter
--- OUTSIDE RECORDS SUMMARY | 2025-06-06 08:28 | XMS_ITS | Encounter Summary ---
Author Organization [facility] Address [address] [place] [address] Care Team Providers Care Cst Name Role Phone Provider, Abstract Primary Care Provider Unavail able Encounter Details Date Type Department Care Team (Late st Contact Info) Description 03/14/2007 Outpatient Historical [facility] Internal Medicine - [facility] [address] [address] [facility] [address] [place] [address] Mabel Diez MD Social History Tobacco Use Types Packs/Day Years Used Date Smoking Tobacco: Never Assessed Comments Unknown Sex and Gender Information Value Date Recorded Sex Assigned at Not on file Legal Sex Female 3:57 AM ADVERTISING INTERN Gender Identity Not on file Sexual Orientation Not on file documented as of this encounter Last Filed Vital Signs Vital Sign Reading Time Taken Comments Blood Pressure 116/70 03/14/2007 1:30 PM CDT Pulse 88 03/14/2007 1:30 PM CDT Temperature 36.1 C (97 F) 03/14/2007 1:30 PM CDT Respiratory Rate - - Oxygen Saturation - - Inhaled Oxygen Concentration - - Weight 49 kg (108 lb) 03/14/2007 1:30 PM CDT Height - - Body Mass Index - - documented in this encounter Plan of Treatment Not on file documented as of this encounter Visit Diagnoses Not on filedocumented in this encounter Care Teams Cst Relationship Specialty Start Date End Date Provider, Abstract NO ADDRESS ON FILE PCP - General 02/28/21 documented as of this encounter
[2025-06-06 17:15] LABS: Hematocrit 39.1 % (37.0-47.0); Hemoglobin 13.1 g/dL (12.0-15.0); Immature Granulocyte Percent A 0.0 % (0-0.5); Lymphocytes Absolute Auto 1.66 K/mm3 (0.9-3.2); Mean Corpuscular HGB Conc 33.5 g/dl (32-36); Mean Corpuscular Hemoglobin 33.7 pg (26-34); Mean Corpuscular Volume 100.5 fl (80-100); Nucleated Red Blood Cells Absolute Auto 0.000 K/mm3 (0.0-0.012); Nucleated Red Blood Cells Perc 0.0 % (0.0-0.2); Platelet Count Result 224 k/mm3 (150-375); Red Blood Count 3.89 M/mm3 (4.2-5.4); White Blood Count 4.0 K/mm3 (4.5-10.0)
[2025-06-06 17:21] LABS: Alanine Aminotransferase 27 U/L (6-35); Albumin Level 4.6 g/dL (3.5-5.1); Alkaline Phosphatase 45 U/L (38-126); Anion Gap 8 mmol/L (4-12); Aspartate Amino Transferase 44 U/L (14-36); Bilirubin,Total 0.5 mg/dL (0.2-1.3); Blood Urea Nitrogen 14 mg/dL (7-17); Calcium 9.5 mg/dL (8.4-10.2); Carbon Dioxide 24 mmol/L (22-30); Chloride 105 mmol/L (98-107); Cholesterol 195 mg/dL (0-200); Estimated Glomerular Filt Rate 57; Glucose 82 mg/dL (65-110); HDL Direct 80 mg/dL; Potassium 4.6 mmol/L (3.4-5.0); Sodium 137 mmol/L (137-145); Total Protein 7.3 g/dL (6.3-8.2); Triglycerides 88 mg/dL (<150)
== END 2025-06-06 08:26 | disposition home or self-care (01) ==
LOC: ANHGOSHLAB 08:26
PROVIDERS: PCP Nurse Practitioner; Visit Provider Nurse Practitioner
DX: E78.5 Hyperlipidemia, unspecified (principal); E55.9 Vitamin D deficiency, unspecified
CPT/HCPCS: 36415; 80053; 80061; 82306; 85025